=== PATIENT | male | born 1950 | race Caucasian/White ===

== ENCOUNTER 2018-06-22 13:38 | Inpatient (IN) | payer OTHER ==
[2018-06-22 14:19] VITALS: BMI 25.4
--- NOTE | 2018-06-22 18:36 | HP ---
CIWA Score - CIWA Score Nausea/Vomitin-No Nausea/No Vomiting Muscle Tremors: 5 Anxiety: 3 Agitation: 2 Paroxysmal Sweats: 2 Orientation: 0-Oriented Tacttile Disturbances: 2-Mild Itch/Numbness/Burn (both feet) Auditory Disturbances: 0-None Visual Disturbances: 1-Very Mild Sensitivity Headache: 0-None Present CIWA-Ar Total Score: 15 Admission ROS BHS - HPI Chief Complaint: alcohol withdrawal symptoms Allergies/Adverse Reactions: Allergies Allergy/AdvReac Type Severity Reaction Status Date / Time acetaminophen [From Tylenol] Allergy Verified 06/22/18 17:05 History of Present Illness: 67 yo male with hx of nicotine and alcohol dependence is here seeking detox for the first. Utox positive for TIO, THC and Opi, denies uses of these substances, I-stop reviewed no hx of prescribed controlled substance. PMHX: chronic back pain, and depression. Denies suicidal / homicidal ideation or hx of suicide attempt. Denies hx of seizures or blackouts. Longest period of sobriety three year. Reference #: [id number] There are no results for the search terms that you entered. Exam Limitations: No Limitations - Ebola screening Have you traveled outside of the country in the last 21 days: No Have you had contact with anyone from an Ebola affected area: No Have you been sick,other than usual withdrawal symptoms: No Do you have a fever: No - Review of Systems Constitutional: Chills, Diaphoresis, Changes in sleep, Unintentional Wgt. Loss ( 20 lbs) EENT: reports: No Symptoms Reported Respiratory: reports: No Symptoms reported Cardiac: reports: Palpitations GI: reports: Diarrhea, Abdominal cramping : reports: Urgency Musculoskeletal: reports: Back Pain Integumentary: reports: No Symptoms Reported Neuro: reports: Tremors, Unsteady Gait (uses cane) Endocrine: reports: Increased Thirst Hematology: reports: No Symptoms Reported Psychiatric: reports: Orientated x3, Anxious Other Systems: Reviewed and Negative Patient History - Patient Medical History Hx Anemia: No Hx Asthma: No Hx Chronic Obstructive Pulmonary Disease (COPD): No Hx Cancer: No Hx Cardiac Disorders: No Hx Congestive Heart Failure: No Hx Hypertension: No Hx Hypercholesterolemia: No Hx Pacemaker: No HX Cerebrovascular Accident: No Hx Seizures: No Hx Dementia: No Hx Diabetes: No Hx Gastrointestinal Disorders: No Hx Liver Disease: No Hx Genitourinary Disorders: No Hx Sexually Transmitted Disorders: No Hx Renal Disease (ESRD): No Hx Thyroid Disease: No Hx Human Immunodeficiency Virus (HIV): No Hx Hepatitis C: No Hx Depression: Yes Hx Suicide Attempt: No Hx Bipolar Disorder: No Hx Schizophrenia: No - Patient Surgical History Past Surgical History: No - PPD History Previous Implant?: No Documented Results: Negative w/o proof PPD to be Administered?: Yes - Smoking Cessation Smoking history: Current every day smoker Aproximately how many cigarettes per day: 20 Hx Chewing Tobacco Use: No Initiated information on smoking cessation: Yes 'Breaking Loose' booklet given: 06/22/18 - Substance & Tx. History Hx Alcohol Use: Yes Hx Substance Use: Yes Substance Use Type: Alcohol Hx Substance Use Treatment: No - Substances Abused Alcohol Route: Oral Frequency: Daily Amount used: 12 PACKS , 1/2 PINT RUM Age of first use: 41 Date of Last Use: 06/22/18 Family Disease History - Family Disease History Family Disease History: Diabetes: Father (), Mother (), Other: Father, Mother Admission Physical Exam [facility] - Vital Signs Vital Signs: Vital Signs - 24 hr 06/22/18 14:11 Temperature 99.2 F Pulse Rate 101 H Respiratory 18 Rate Blood Pressure 159/97 - Physical General Appearance: Yes: Appropriately Dressed, Moderate Distress, Thin, Tremorous, Sweating, Anxious HEENTM: Yes: EOMI, Hearing grossly Normal, Normal ENT Inspection, Normocephalic , Normal Voice, JEANETTE, Pharynx Normal, Tm's normal Respiratory: Yes: Chest Non-Tender, Lungs Clear, Normal Breath Sounds, No Respiratory Distress, No Accessory Muscle Use Neck: Yes: Within Normal Limits Breast: Yes: Breast Exam Deferred Cardiology: Yes: Regular Rhythm, Tachycardia Abdominal: Yes: Normal Bowel Sounds, Non Tender, Flat, Soft Genitourinary: Yes: Within Normal Limits Back: Yes: Normal Inspection Musculoskeletal: Yes: full range of Motion, Gait Steady, Pelvis Stable, Back pain Extremities: Yes: Normal Capillary Refill, Normal Inspection, Normal Range of Motion, Non-Tender Neurological: Yes: miter operator II-XII NML intact, Fully Oriented, Alert, Motor Strength 5/5, Depressed Affect Integumentary: Yes: Normal Color, Diaphoresis Lymphatic: Yes: Within Normal Limits - Diagnostic (1) Alcohol dependence with withdrawal Current Visit: Yes Status: Acute Qualifiers: Complication of substance-induced condition: uncomplicated Qualified Code(s ): F10.230 - Alcohol dependence with withdrawal, uncomplicated (2) Tremor due to drug withdrawal Current Visit: Yes Status: Acute (3) Chronic back pain Current Visit: Yes Status: Chronic Qualifiers: Back pain location: low back pain (4) Nicotine dependence Current Visit: Yes Status: Acute Qualifiers: Nicotine product type: cigarettes (5) Elevated blood pressure reading without diagnosis of hypertension Current Visit: Yes Status: Acute Cleared for Admission [facility] - Detox or Rehab [facility] Level of Care: Medically Managed Detox Regimen/Protocol: Librium [facility] Breath Alcohol Content Breath Alcohol Content: 0.086 Urine Drug Screen - Results Drug Screen Negative: No Urine Drug Screen Results: THC-Marijuana, TIO-Cocaine, OPI-Opiates
[2018-06-22] MEDS ORDERED: LOPERAMIDE HCL 2 MG CAPSULE PO PRN (18:48)
[2018-06-22] MEDS ORDERED: guaiFENesin/D-METHORPHAN HB 10 ML UNIT-DOSE CUPS PO PRN (18:48)
[2018-06-22] MEDS ORDERED: IBUPROFEN 400 MG TABLET (FP) PO PRN (18:48)
[2018-06-22] MEDS ORDERED: MENTHOL/PHENOL 1 EACH UD MM PRN (18:48)
[2018-06-22] MEDS ORDERED: chlordiazePOXIDE HCL 25 MG CAPSULE PO PRN (18:48)
[2018-06-22] MEDS ORDERED: MAGNESIUM HYDROX 2400MG/30ML ORAL SUSPENSION 30 ML CUP PO PRN (18:48)
[2018-06-22] MEDS ORDERED: P-EPHED 60MG/TRIPROLIDI 2.5MG TABLET PO PRN (18:48)
[2018-06-22] MEDS ORDERED: MAGNESIUM CITRATE 300 ML BOTTLE PO PRN (18:48)
[2018-06-22] MEDS ORDERED: NICOTINE POLACRILEX 2 MG GUM BC PRN (18:48)
[2018-06-22] MEDS ORDERED: MAG HYDROX/AL HYDROX/SIMETH 30 ML UNIT-DOSE CUP PO PRN (18:48)
[2018-06-22] MEDS ORDERED: cloNIDine HCL 0.1 MG TABLET PO ONE (19:15)
[2018-06-22] MEDS ORDERED: chlordiazePOXIDE HCL 25 MG CAPSULE PO ONE (19:15)
[2018-06-22] MEDS ORDERED: MELATONIN 5 MG TABLETS PO PRN (22:00)
[2018-06-22] MEDS: THIAMINE HCL 100 MG TABLET (FP) PO SCH (22:37)
[2018-06-22] MEDS: chlordiazePOXIDE HCL 25 MG CAPSULE PO SCH (22:38)
[2018-06-23] MEDS: chlordiazePOXIDE HCL 25 MG CAPSULE PO SCH ×4 (05:53→22:28)
--- NOTE | 2018-06-23 08:43 | EKG ---
Test Reason : Blood Pressure : / mmHG Vent. Rate : 082 BPM Atrial Rate : 082 BPM P-R Int : 148 ms QRS Dur : 064 ms QT Int : 386 ms P-R-T Axes : 061 -10 040 degrees QTc Int : 450 ms POOR DATA QUALITY, INTERPRETATION MAY BE ADVERSELY AFFECTED NORMAL SINUS RHYTHM NORMAL ECG NO PREVIOUS ECGS AVAILABLE Confirmed by YAZAN KNIGHT MD ([id number]) on 06/23/2018 8:42:46 AM Referred By: Confirmed By:YAZAN KNIGHT MD
[2018-06-23 10:46] LABS: HEMOGLOBIN 11.4 GM/dL (11.7-16.9); MCH 32.8 pg (25.7-33.7); MCHC 34.4 g/dl (32.0-35.9); MEAN CELL VOLUME 95.3 fl (80-96); PLATELET COUNT 75 K/MM3 (134-434); RBC 3.46 M/mm3 (4.00-5.60); RDW 15.1 % (11.9-15.9); WHITE BLOOD COUNT 2.7 K/mm3 (4.0-10.0)
--- NOTE | 2018-06-23 10:53 | PN ---
S CIWA - CIWA Score Nausea/Vomitin Muscle Tremors: 3 Anxiety: 3 Agitation: 3 Paroxysmal Sweats: 1-Minimal Palms Moist Orientation: 0-Oriented Tacttile Disturbances: 1-Very Mild Itch/Numbness Auditory Disturbances: 1-Very Mild Visual Disturbances: 1-Very Mild Sensitivity Headache: 2-Mild CIWA-Ar Total Score: 18 BHS Progress Note (SOAP) Subjective: alert,irritable,anxious,interrupted sleep,tremor Objective: 06/23/18 10:52 Vital Signs Temperature 98.2 F 06/23/18 09:21 Pulse Rate 102 H 06/23/18 09:21 Respiratory Rate 18 06/23/18 09:21 Blood Pressure 119/69 06/23/18 09:21 O2 Sat by Pulse Oximetry (%) labs pending Assessment: 06/23/18 10:52 withdrawal symptom Plan: continue detox
[2018-06-23 10:55] LABS: CHLORIDE 95 mmol/L (98-107); POTASSIUM 3.2 mmol/L (3.5-5.1); SODIUM 135 mmol/L (136-145)
[2018-06-23] MEDS: NICOTINE 21 MG/24 HOURS TOPICAL PATCH TD SCH (10:57)
[2018-06-23] MEDS: PRENATAL VITAMINS W/ FOLIC ACID TABLET (FP) PO SCH (10:57)
[2018-06-23 11:02] LABS: ALBUMIN 3.3 g/dl (3.4-5.0); ALK PHOS 77 U/L (45-117); ANION GAP 7 (8-16); BILIRUBIN,TOTAL 1.1 mg/dL (0.2-1.0); BLOOD UREA NITROGEN 4 mg/dL (7-18); CALCIUM 8.5 mg/dL (8.5-10.1); CO2 33 mmol/L (21-32); CREATININE 0.7 mg/dL (0.7-1.3); GLUCOSE,RANDOM 123 mg/dL (74-106); SGOT/AST 97 U/L (15-37); SGPT/ALT 50 U/L (12-78)
--- NOTE | 2018-06-23 15:49 | CONSULT ---
[facility] Psychiatric Consult - Data Date of interview: 06/23/18 Admission source: [facility] Identifying data: Patient is a 67 year old male, father of four, retired , domiciled, and is supported by public assistance. This is patient's first admission to detox at [facility]. Patient admitted to for alcohol dependence. Substance Abuse History: Smoking Cessation. Smoking history: Current every day smoker. Aproximately how many cigarettes per day: 20. Hx Chewing Tobacco Use: No. Initiated information on smoking cessation: Yes. 'Breaking Loose' booklet given: 06/22/18. - Substance & Tx. History. Hx Alcohol Use: Yes. Hx Substance Use: Yes. Substance Use Type: Alcohol. Hx Substance Use Treatment: No. - Substances Abused. Alcohol. Route: Oral. Frequency: Daily. Amount used: 12 PACKS , 1/2 PINT RUM. Age of first use: 41. Date of Last Use: Medical History: Unremarkable. Psychiatric History: Patient denies h/o psychiatric hospitalization, outpatient care, and suicide attempt. Physical/Sexual Abuse/Trauma History: Denies. Mental Status Exam - Mental Status Exam Alert and Oriented to: Time, Place, Person Cognitive Function: Good Patient Appearance: Well Groomed Mood: Euthymic Affect: Mood Congruent Patient Behavior: Cooperative Speech Pattern: Appropriate (Speaks yi) Voice Loudness: Normal Thought Process: Intact, Goal Oriented Thought Disorder: Not Present Hallucinations: Denies Suicidal Ideation: Denies Homicidal Ideation: Denies Insight/Judgement: Poor Sleep: Fair Appetite: Fair Muscle strength/Tone: Normal Gait/Station: Normal (Pt. has a cane in the room but is observed ambulating on unit without cane.) Psychiatric Findings - Problem List ([place] 1, 2,3) (1) Alcohol dependence with withdrawal Current Visit: Yes Status: Acute Qualifiers: Complication of substance-induced condition: uncomplicated Qualified Code(s ): F10.230 - Alcohol dependence with withdrawal, uncomplicated (2) Nicotine dependence Current Visit: Yes Status: Chronic Qualifiers: Nicotine product type: cigarettes - Initial Treatment Plan Initial Treatment Plan: Psychoeducation provided. Detoxification in progress. Observation.
[2018-06-23 17:31] LABS: URINE APPEARANCE CLEAR; URINE BILIRUBIN NEGATIVE (<2.0 mg/dL); URINE COLOR AMBER; URINE GLUCOSE (UA) NEGATIVE (NEGATIVE); URINE KETONE NEGATIVE (NEGATIVE); URINE LEUK ESTERASE NEGATIVE (NEGATIVE); URINE NITRITE NEGATIVE (NEGATIVE); URINE PROTEIN NEGATIVE (NEGATIVE)
[2018-06-23] MEDS: THIAMINE HCL 100 MG TABLET (FP) PO SCH (22:28)
[2018-06-24] MEDS: chlordiazePOXIDE HCL 25 MG CAPSULE PO SCH ×3 (05:53→21:17)
[2018-06-24] MEDS: PRENATAL VITAMINS W/ FOLIC ACID TABLET (FP) PO SCH (10:41)
[2018-06-24] MEDS: NICOTINE 21 MG/24 HOURS TOPICAL PATCH TD SCH (10:41)
--- NOTE | 2018-06-24 23:03 | PN ---
S CIWA - CIWA Score Nausea/Vomitin Muscle Tremors: 3 Anxiety: 3 Agitation: 3 Paroxysmal Sweats: 3 Orientation: 0-Oriented Tacttile Disturbances: 0-None Auditory Disturbances: 0-None Visual Disturbances: 0-None Headache: 0-None Present CIWA-Ar Total Score: 14 BHS Progress Note (SOAP) Subjective: Sweats shakes Sllep disturbance Objective: 06/24/18 23:02 A & ox 3 Ambulates with a cane Vital Signs 06/24/18 06/24/18 18:01 22:19 Temperature 97.9 F 98.1 F Pulse Rate 88 93 H Respiratory 18 18 Rate Blood Pressure 103/66 123/74 Assessment: 06/24/18 23:02 withdrawal sx Plan: continue detox
[2018-06-24] MEDS: THIAMINE HCL 100 MG TABLET (FP) PO SCH (23:07)
[2018-06-24] MEDS: chlordiazePOXIDE 5 MG CAPSULE PO SCH (23:08)
[2018-06-25] MEDS: chlordiazePOXIDE 5 MG CAPSULE PO SCH ×2 (05:40→11:07)
[2018-06-25] MEDS: PRENATAL VITAMINS W/ FOLIC ACID TABLET (FP) PO SCH (11:07)
[2018-06-25] MEDS: NICOTINE 21 MG/24 HOURS TOPICAL PATCH TD SCH (11:07)
--- NOTE | 2018-06-25 11:59 | PN ---
BHS Progress Note (SOAP) Subjective: Interrupted sleep, tremors and sweats Objective: 06/25/18 11:58 Vital Signs - 8 hr 06/25/18 06/25/18 06:00 10:25 Temperature 97.5 F L 97.7 F Pulse Rate 83 96 H Respiratory 18 16 Rate Blood Pressure 105/63 124/74 Laboratory Last Values WBC 2.7 K/mm3 (4.0-10.0) L 06/23/18 07:00 RBC 3.46 M/mm3 (4.00-5.60) L 06/23/18 07:00 Hgb 11.4 GM/dL (11.7-16.9) L 06/23/18 07:00 Hct 33.0 % (35.4-49) L 06/23/18 07:00 MCV 95.3 fl (80-96) 06/23/18 07:00 MCH 32.8 pg (25.7-33.7) 06/23/18 07:00 MCHC 34.4 g/dl (32.0-35.9) 06/23/18 07:00 RDW 15.1 % (11.9-15.9) 06/23/18 07:00 Plt Count 75 K/MM3 (134-434) L 06/23/18 07:00 MPV 10.0 fl (7.5-11.1) 06/23/18 07:00 Sodium 135 mmol/L (136-145) L 06/23/18 07:00 Potassium 3.2 mmol/L (3.5-5.1) L 06/23/18 07:00 Chloride 95 mmol/L (98-107) L 06/23/18 07:00 Carbon Dioxide 33 mmol/L (21-32) H 06/23/18 07:00 Anion Gap 7 (8-16) L 06/23/18 07:00 BUN 4 mg/dL (7-18) L 06/23/18 07:00 Creatinine 0.7 mg/dL (0.7-1.3) 06/23/18 07:00 Creat Clearance w eGFR > 60 (>60) 06/23/18 07:00 Random Glucose 123 mg/dL (74-106) H 06/23/18 07:00 Calcium 8.5 mg/dL (8.5-10.1) 06/23/18 07:00 Total Bilirubin 1.1 mg/dL (0.2-1.0) H 06/23/18 07:00 AST 97 U/L (15-37) H 06/23/18 07:00 ALT 50 U/L (12-78) 06/23/18 07:00 Alkaline Phosphatase 77 U/L (45-117) 06/23/18 07:00 Total Protein 6.0 g/dl (6.4-8.2) L 06/23/18 07:00 Albumin 3.3 g/dl (3.4-5.0) L 06/23/18 07:00 Urine Color Teresa 06/22/18 14:00 Urine Appearance Clear 06/22/18 14:00 Urine pH 6.0 (5.0-8.0) 06/22/18 14:00 Ur Specific [place] 1.011 (1.001-1.035) 06/22/18 14:00 Urine Protein Negative (NEGATIVE) 06/22/18 14:00 Urine Glucose (UA) Negative (NEGATIVE) 06/22/18 14:00 Urine Ketones Negative (NEGATIVE) 06/22/18 14:00 Urine Blood Negative (NEGATIVE) 06/22/18 14:00 Urine Nitrite Negative (NEGATIVE) 06/22/18 14:00 Urine Bilirubin Negative (<2.0 mg/dL) 06/22/18 14:00 Urine Urobilinogen 2.0 mg/dL (0.2-1.0) 06/22/18 14:00 Ur Leukocyte Esterase Negative (NEGATIVE) 06/22/18 14:00 RPR Titer Nonreactive (NONREACTIVE) 06/23/18 07:00 Labs noted Assessment: 06/25/18 11:58 Withdrawal sx Plan: Continue detox
[2018-06-26] MEDS: chlordiazePOXIDE 5 MG CAPSULE PO SCH (00:58)
[2018-06-26] MEDS: chlordiazePOXIDE HCL 10 MG CAPSULE PO SCH ×3 (00:58→10:11)
[2018-06-26] MEDS: THIAMINE HCL 100 MG TABLET (FP) PO SCH (00:58)
--- NOTE | 2018-06-26 08:21 | PN ---
S Progress Note (SOAP) Subjective: alert,no complaint Objective: 06/26/18 08:20 Vital Signs Temperature 97.7 F 06/26/18 06:25 Pulse Rate 79 06/26/18 06:25 Respiratory Rate 18 06/26/18 06:25 Blood Pressure 123/75 06/26/18 06:25 O2 Sat by Pulse Oximetry (%) Assessment: 06/26/18 08:20 detox completed,no withdrawal symptom Plan: discharge today,follow up with after care program as arrangement
--- NOTE | 2018-06-26 08:24 | DS ---
[facility] Detox Discharge Summary Admission Date: 06/22/18 Discharge Date: 06/26/18 - History Present History: Alcohol Dependence Additional Comments: follow up with after care program as arrangement Pertinent Past History: hypertension nicotine dependence low back pain chronic - Physical Exam Results Vital Signs: Vital Signs Temperature 97.7 F 06/26/18 06:25 Pulse Rate 79 06/26/18 06:25 Respiratory Rate 18 06/26/18 06:25 Blood Pressure 123/75 06/26/18 06:25 O2 Sat by Pulse Oximetry (%) Pertinent Admission Physical Exam Findings: withdrawal signs and symptom Laboratory Last Values WBC 2.7 K/mm3 (4.0-10.0) L 06/23/18 07:00 RBC 3.46 M/mm3 (4.00-5.60) L 06/23/18 07:00 Hgb 11.4 GM/dL (11.7-16.9) L 06/23/18 07:00 Hct 33.0 % (35.4-49) L 06/23/18 07:00 MCV 95.3 fl (80-96) 06/23/18 07:00 MCH 32.8 pg (25.7-33.7) 06/23/18 07:00 MCHC 34.4 g/dl (32.0-35.9) 06/23/18 07:00 RDW 15.1 % (11.9-15.9) 06/23/18 07:00 Plt Count 75 K/MM3 (134-434) L 06/23/18 07:00 MPV 10.0 fl (7.5-11.1) 06/23/18 07:00 Sodium 135 mmol/L (136-145) L 06/23/18 07:00 Potassium 3.2 mmol/L (3.5-5.1) L 06/23/18 07:00 Chloride 95 mmol/L (98-107) L 06/23/18 07:00 Carbon Dioxide 33 mmol/L (21-32) H 06/23/18 07:00 Anion Gap 7 (8-16) L 06/23/18 07:00 BUN 4 mg/dL (7-18) L 06/23/18 07:00 Creatinine 0.7 mg/dL (0.7-1.3) 06/23/18 07:00 Creat Clearance w eGFR > 60 (>60) 06/23/18 07:00 Random Glucose 123 mg/dL (74-106) H 06/23/18 07:00 Calcium 8.5 mg/dL (8.5-10.1) 06/23/18 07:00 Total Bilirubin 1.1 mg/dL (0.2-1.0) H 06/23/18 07:00 AST 97 U/L (15-37) H 06/23/18 07:00 ALT 50 U/L (12-78) 06/23/18 07:00 Alkaline Phosphatase 77 U/L (45-117) 06/23/18 07:00 Total Protein 6.0 g/dl (6.4-8.2) L 06/23/18 07:00 Albumin 3.3 g/dl (3.4-5.0) L 06/23/18 07:00 Urine Color Teresa 06/22/18 14:00 Urine Appearance Clear 06/22/18 14:00 Urine pH 6.0 (5.0-8.0) 06/22/18 14:00 Ur Specific [place] 1.011 (1.001-1.035) 06/22/18 14:00 Urine Protein Negative (NEGATIVE) 06/22/18 14:00 Urine Glucose (UA) Negative (NEGATIVE) 06/22/18 14:00 Urine Ketones Negative (NEGATIVE) 06/22/18 14:00 Urine Blood Negative (NEGATIVE) 06/22/18 14:00 Urine Nitrite Negative (NEGATIVE) 06/22/18 14:00 Urine Bilirubin Negative (<2.0 mg/dL) 06/22/18 14:00 Urine Urobilinogen 2.0 mg/dL (0.2-1.0) 06/22/18 14:00 Ur Leukocyte Esterase Negative (NEGATIVE) 06/22/18 14:00 RPR Titer Nonreactive (NONREACTIVE) 06/23/18 07:00 Vital Signs Temperature 97.7 F 06/26/18 06:25 Pulse Rate 79 06/26/18 06:25 Respiratory Rate 18 06/26/18 06:25 Blood Pressure 123/75 06/26/18 06:25 O2 Sat by Pulse Oximetry (%) - Treatment Hospital Course: Detox Protocol Followed, Detoxed Safely, Responded well, Discharged Condition Good Patient has Accepted a Rehab Referral to: declined - Medication Discharge Medications: Ambulatory Orders NK [No Known Home Medication] 06/22/18 - Diagnosis (1) Alcohol dependence with withdrawal Current Visit: Yes Status: Acute Qualifiers: Complication of substance-induced condition: uncomplicated Qualified Code(s ): F10.230 - Alcohol dependence with withdrawal, uncomplicated (2) Nicotine dependence Current Visit: Yes Status: Chronic Qualifiers: Nicotine product type: cigarettes (3) Chronic back pain Current Visit: Yes Status: Chronic Qualifiers: Back pain location: low back pain (4) Hypertension Current Visit: Yes Status: Chronic - AMA Did Patient Leave Against Medical Advice: No
[2018-06-26] MEDS: PRENATAL VITAMINS W/ FOLIC ACID TABLET (FP) PO SCH (10:11)
[2018-06-26] MEDS: NICOTINE 21 MG/24 HOURS TOPICAL PATCH TD SCH (10:11)
[2018-06-26 15:33] VITALS: BP 124/80; PULSE 95; TEMP 98.1
== END 2018-06-26 15:11 | disposition home or self-care (01) | DRG 897 ==
LOC: YASAS 13:38 → Y6N 18:06
PROVIDERS: ADMIT Surgery; ATTEND Surgery
PROC: HZ2ZZZZ Detoxification Services for Substance Abuse Treatment (ICD-10-PCS; principal; 2018-06-22)
DX: F10.230 Alcohol dependence with withdrawal, uncomplicated (principal); F17.210 Nicotine dependence, cigarettes, uncomplicated; I10 Essential (primary) hypertension; M54.5 Low back pain; G89.29 Other chronic pain; G25.1 Drug-induced tremor; R00.0 Tachycardia, unspecified; Z88.6 Allergy status to analgesic agent
CPT/HCPCS: 36415; 80053; 81003; 85027; 86593; 93005; 93010; J0735